=== PATIENT | female | born 1950 | race Caucasian/White ===

== ENCOUNTER 2018-05-29 17:55 | Emergency (ER) | payer MEDICARE, OTHER, SELFPAY ==
[2018-05-29 17:56] VITALS: BP 196/116; PULSE 74; RESP 19; TEMP 36.9; O2SAT 97; BMI 34.2
--- NOTE | 2018-05-29 18:30 | ED.VISSUMM ---
- ER Visit Summary Date of Service: 05/29/18 Chief Complaint: [] Fall left shoulder injury today History of Present Illness: The patient is a 68 F [] she was basically being pulled on what sounds like some type of tube through the eyes like a sliding process when she inadvertently fell off of this device struck her left shoulder against a hard ice presents with shoulder pain she also struck the left side of her head but no LOC no change in vision no numbness weakness or paresthesias indicates her chief complaint is directly over the left shoulder no other complaints otherwise Physical Examination: [] 190/80 As her arm brace with pillows to support the shoulder she cannot move at the shoulder because of pain General, no distress resting comfortably HEENT is generally unremarkable The neck is supple no adenopathy Cardiovascular, regular rate and rhythm Lungs, clear bilateral Abdomen, soft nontender Extremities, no clubbing cyanosis or edema, the left shoulder there is pain directly over the shoulder there is no arm pain elbow pain forearm wrist or hand pain hand pain has good assistant technician, her back is unremarkable she has a mild contusion to the left parietal area her HEENT TM exam unremarkable neurologically unremarkable Neurologic, awake alert answering questions appropriately moving all 4 extremities IH is 0 awake and alert no signs of serious life-threatening head injury Test Results: [] Emergency Department Course and Treatment: [] X-rays obtained of the shoulder we discussed CT of the head they agree this is can be deferred as the chief complaint is the shoulder and she is having no neurologic issues X-ray shows distal clavicle fracture, with some displacement,, see that report discussed the above with the patient she is fitted with a sling ice elevation [place] for pain if [id number] nonsteroidals ineffective she is referred to primary care and also Dr. Reinoso orthopedics for further management return for change in symptoms she remains awake and alert no neurologic abnormalities or findings Treatment Plan: [] Disposition: [] Home stable Impression: [] Fall left clavicle fracture This note was generated with [employer] dictation software. It may contain incorrect words, spelling, and punctuation that were not noted in review of the chart prior to signing ED Disposition - Plan for ED Patient: Chief Complaint: Upper Extremity Injury Instructions: ED Fx Clavicle, ED Fx Shoulder Prescriptions: Hydrocodone Bitart/Apap 5-325 [[place] 5MG-325MG] 1 tab PO Q6H PRN PRN 3 Days #10 tab PRN Reason: Pain Referrals: Stu Reinoso MD [STAFF PHYSICIAN] - Hunter Reed MD [Primary Care Provider] -
[2018-05-29] MEDS: Ondansetron ODT 4 MG Tablet PO (18:38)
[2018-05-29] MEDS: morphine 8 MG/ML Syringe SC (18:39)
--- NOTE | 2018-05-29 18:45 | RAD_ITS ---
STUDY: X-RAY - LEFT SHOULDER REASON FOR EXAM: Female, 68 years old. Left clavicle pain after snow tubing injury TECHNIQUE: 3 view(s) of the shoulder. COMPARISON: None. FINDINGS: Normal glenohumeral articulation. Normal acromioclavicular joint. Normal acromion. Normal humeral head and visualized proximal humerus. Normal variant bone island of the proximal humerus noted. The soft tissue structures are unremarkable. There is a transverse fracture of the mid to distal left clavicle with approximately one shaft's width displacement. No significant angulation. RAD/Shoulder min 2 Views IMPRESSION: Moderately displaced left clavicle fracture. Electronically Signed: Neo Brunson MD at 19:03 EST , Service support ,
--- NOTE | 2018-05-29 18:56 | ED.DEP ---
ED Disposition - Plan for ED Patient: Chief Complaint: Upper Extremity Injury Instructions: ED Fx Shoulder, ED Fx Clavicle Prescriptions: Hydrocodone Bitart/Apap 5-325 [[place] 5MG-325MG] 1 tab PO Q6H PRN PRN 3 Days #10 tab PRN Reason: Pain Referrals: Hunter Reed MD [Primary Care Provider] - Stu Reinoso MD [STAFF PHYSICIAN] -
[2018-05-29 19:32] VITALS: PULSE 65; RESP 18; O2SAT 97
== END 2018-05-29 19:32 | disposition home or self-care (01) ==
LOC: ED 19:16
PROVIDERS: Emergency Provider Emergency Medicine; Family Provider Family Medicine; PCP Family Medicine
DX: S42.002A Fracture of unspecified part of left clavicle, initial encounter for closed fracture (principal); W00.0XXA Fall on same level due to ice and snow, initial encounter; Y93.23 Activity, snow (alpine) (downhill) skiing, snowboarding, sledding, tobogganing and snow tubing; Y92.89 Other specified places as the place of occurrence of the external cause; Y99.8 Other external cause status
CPT/HCPCS: 73030; 96372; 99283

== ENCOUNTER → 2018-06-08 11:03 | Outpatient (CLI) | payer MEDICARE, OTHER, SELFPAY ==
[2018-05-29 17:56] VITALS: BMI 34.2
--- NOTE | 2018-06-08 11:20 | EKG12_ITS ---
Test Reason : PRE OP Blood Pressure : / mmHG Vent. Rate : 072 BPM Atrial Rate : 072 BPM P-R Int : 166 ms QRS Dur : 082 ms QT Int : 406 ms P-R-T Axes : 005 039 048 degrees QTc Int : 444 ms Normal sinus rhythm Normal ECG Reconfirmed by KACY DE LA ROSA, OLGA ([id number]), editor producer PEDRO BHATIA ([id number]) on 06/09/2018 1:25:37 PM Referred By: Jordy Cain Confirmed By:OLGA WOODRUFF MD
[2018-06-08 11:31] LABS: Hematocrit 37.7 % (37-47); Hemoglobin 11.9 g/dl (12.0-15.0); Mean Corp Hgb Conc 31.6 g/gl (32-36); Mean Corpuscular Hgb 30.5 pg (27.0-32.0); Mean Corpuscular Volume 96.7 fL (81-99); Mean Platelet Vol. 9.2 fl (6.2-12.0); Platelet Count 215 K/mm3 (150-450); RBC Distribution Width CV 12.8 % (11.6-14.6); RBC Distribution Width SD 44.5 fl (35.1-43.9); White Blood Count 11.4 K/mm3 (4.4-11.0)
[2018-06-08 11:32] LABS: Scan Indicated on CBC? Y/N NO
[2018-06-08 11:57] LABS: Anion Gap 9 (5-15); BUN 22 mg/dL (7-18); BUN/Creat Ratio 29.3 RATIO (10-20); Calcium,Total 9.5 mg/dL (8.5-10.1); Chloride 103 mmol/L (98-107); Creatinine, Serum 0.75 mg/dL (0.55-1.02); EST Glomerular Filtration Rate 82 mL/min (>60); Est Glom Filt Rate - Afr Amer 99 mL/min (>60); Glucose 103 mg/dL (74-106); Potassium 4.1 mmol/L (3.5-5.1); Sodium Level 140 mmol/L (136-145)
== END ==
PROVIDERS: Family Provider Family Medicine; PCP Family Medicine; Referring Provider Physician Assistant; Visit Provider Physician Assistant
DX: Z01.818 Encounter for other preprocedural examination (principal); Z01.810 Encounter for preprocedural cardiovascular examination
CPT/HCPCS: 36415; 80048; 85027; 93005

== ENCOUNTER → 2018-06-15 09:41 | Outpatient (CLI) | payer MEDICARE, OTHER, SELFPAY ==
[2018-05-29 17:56] VITALS: BMI 34.2
--- NOTE | 2018-06-15 09:44 | CT_ITS ---
STUDY: CT CHEST WITHOUT CONTRAST REASON FOR EXAM: Female, 68 years old. Left clavicular fracture and repair on May 29. The patient now presents with right-sided posterior rib pain. RADIATION DOSAGE (If Supplied By Facility): CTDIvol = ( 25.14 ) mGy, DLP = ( 929.87 ) mGycm TECHNIQUE: Transaxial imaging was performed without the administration of intravenous contrast material. Multiplanar coronal and sagittal images were reformatted. Individualized dose optimization techniques were used for this CT. COMPARISON: None. FINDINGS: The patient is status post ORIF of the left clavicular fracture. There is good alignment. There now is evidence of a infiltration in the right lower lobe. There is an 8 mm noncalcified nodule in the anterior aspect of the right lower lobe abutting the right major fissure. Mild degree of increased markings at the left lung base. Sternal cerclage wires and vascular clips are present from a prior sternotomy and coronary artery bypass graft procedure (CABG). There are multiple small lymph nodes within the mediastinum, which are normal in size and morphology most compatible with reactive lymph hyperplasia. Small calcified right hilar lymph nodes. Normal unenhanced pulmonary arteries. There is atherosclerotic calcification of the aortic arch aortic. There are multi-level degenerative changes of the thoracic spine. There is no demonstrated abnormality of the visualized upper abdomen. CT/Chest without Contrast IMPRESSION: Right lower lobe infiltration. 8 mm noncalcified nodule in the anterior aspect of the right lower lobe abutting the right major fissure. Electronically Signed: Steffen Wakefield MD at 12:32 EST , Service support ,
== END ==
PROVIDERS: Family Provider Family Medicine; PCP Family Medicine; Referring Provider Physician Assistant; Visit Provider Physician Assistant
DX: R07.1 Chest pain on breathing (principal)
CPT/HCPCS: 71250

== ENCOUNTER → 2018-06-16 14:37 | Outpatient (CLI) | payer MEDICARE, OTHER, SELFPAY ==
[2018-05-29 17:56] VITALS: BMI 34.2
[2018-06-23 10:50] LABS: HPV Reflexed? NOT INDICATED
== END ==
PROVIDERS: Visit Provider Obstetrics & Gynecology
DX: Z12.4 Encounter for screening for malignant neoplasm of cervix (principal)
CPT/HCPCS: 88175; G0145

== ENCOUNTER → 2018-07-01 13:03 | Outpatient (CLI) | payer MEDICARE, OTHER, SELFPAY ==
--- NOTE | 2018-07-01 13:03 | BD_ITS ---
STUDY: DUAL ENERGY X-RAY ABSORPTIOMETRY / DXA REASON FOR EXAM: Female, 68 years old. The patient is postmenopausal. No loss of height. TECHNIQUE: Bone Mineral Density (BMD) measurements of lumbar spine and bilateral hips were obtained. COMPARISON: Comparison is made with prior study dated October 30, 2010. FINDINGS: Lumbar Spine (L1-L4): g/cm2 (0.942) / T-score (-2.0) / Z-score (-0.4) Findings are suggestive of osteopenia with a moderate fracture risk. Left Femur Total: g/cm2 (0.802) / T-score (-1.6) / Z-score (-0.4) Left Femoral Neck: g/cm2 (0.841) / T-score (-1.4) / Z-score (0.1) Right Femur Total: g/cm2 (0.740) / T-score (-2.1) / Z-score (-0.9) Right Femoral Neck: g/cm2 (0.739) / T-score (-2.2) / Z-score (-0.6) The T-Scores on the most recent prior examination were: Lumbar Spine (L1-L4): There has been worsening of bone density since the previous examination. Left Femur Total: which represents a worsening of 5.9%. Right Femur Total: which represents a worsening of 9.0%. BD/Dexa Bone Density Study IMPRESSION: The patient is considered osteopenic as outlined below according to World Roger Organization (WHO) criteria with a moderate fracture risk. There has been worsening of bone density since the previous examination. Reference Information: The T-score is the number of standard deviations above or below the standard which is normal for young adults at their peak bone mineral density. The World Health Organization (WHO) interprets the T-scores as follows: Above -1 Normal bone density Between -1 and -2.5 Osteopenia Equal to / or below -2.5 Osteoporosis As a practical clinical guideline, osteopenia may be graded as follows: Mild -1 through -1.5 Moderate -1.6 through -2.0 Severe -2.1 through -2.4 The Z-score is the number of standard deviations above or below age-matched controls. A Z-score of less than -1.5 would be considered abnormal. References: 1. NIH Osteoporosis and Related Bone Diseases http://www.osteo.org 2. International Society for Clinical Densitometry http://www.iscd.org 3. National Osteoporosis Foundation http://www.nof.org Electronically Signed: Steffen Wakefield, at 15:49 EST , Service support ,
== END ==
PROVIDERS: Family Provider Family Medicine; PCP Family Medicine; Referring Provider Obstetrics & Gynecology; Visit Provider Obstetrics & Gynecology
DX: Z78.0 Asymptomatic menopausal state (principal)
CPT/HCPCS: 77080

== ENCOUNTER → 2018-07-21 14:41 | Outpatient (CLI) | payer MEDICARE, OTHER, SELFPAY ==
--- NOTE | 2018-07-21 14:45 | VDUE_ITS ---
Reason For Study: LUE swelling Left Proximal Left jugular vein is spontaneous, widely patent, phasic, with no intraluminal echogenicity noted. Left subclavian vein is spontaneous, widely patent, phasic, with no intraluminal echogenicity noted. Left Arm Left axillary vein is spontaneous, patent, phasic, competent, compressible and demonstrates augmentation. Left brachial vein is compressible. Cephalic v is dilated and non-compressible from above antecubital space to axillary level. Left basilic vein is compressible. Dr. Reed called with prelim. Left Lower Arm Left radial vein is compressible. Left ulnar vein is compressible. Interpretation Summary Deep veins of the left upper extremity are patent and compressible segmentally. There is no evidence of deep vein thrombosis. Acute superficial thrombophlebitis is noted in the left cephalic vein, from the left antecubital space to the axillary level. The left basilic vein is patent and compressible. Ordering Physician: Hunter Reed Referring Physician: Hunter Reed Performed By: Patricia Roberts RVT ?
== END ==
PROVIDERS: Family Provider Family Medicine; PCP Family Medicine; Referring Provider Family Medicine; Visit Provider Family Medicine
DX: R60.0 Localized edema (principal)
CPT/HCPCS: 93971

== ENCOUNTER 2021-02-19 11:06 | Emergency (ER) | payer MEDICARE, OTHER, SELFPAY ==
[2021-02-19 11:09] VITALS: BP 169/79; PULSE 68; RESP 18; TEMP 36.3; O2SAT 99; BMI 33.5
[2021-02-19 12:03] VITALS: BP 129/63; PULSE 60; RESP 14; O2SAT 98
--- NOTE | 2021-02-19 12:18 | EKG12_ITS ---
Test Reason : Blood Pressure : / mmHG Vent. Rate : 059 BPM Atrial Rate : 059 BPM P-R Int : 184 ms QRS Dur : 082 ms QT Int : 436 ms P-R-T Axes : 056 004 034 degrees QTc Int : 431 ms Sinus bradycardia Otherwise normal ECG Confirmed by KACY DE LA ROSA, OLGA ([id number]), editorial cartoonist QIANA BERGER ([id number]) on 02/20/2021 9:27:10 AM Referred By: ROSLYN Confirmed By:OLGA WOODRUFF MD
[2021-02-19] MEDS: Aspirin 81 MG TAB.CHEW 324 MG PO (12:32)
[2021-02-19 12:38] LABS: Absolute Lymphocyte Count 1.54 X10^3/uL (0.83-4.51); Absolute Neutrophil Count 4.2 X10^3/uL (2.0-7.7); Basophil# 0.03 X10^3/uL; Basophil% 0.5 % (0-1); Eosinophil# 0.04 X10^3/uL; Eosinophils% 0.6 % (0-5); Hematocrit 38.2 % (37-47); Hemoglobin 12.4 g/dL (12.0-15.0); Lymphocyte # 1.54 X10^3/ul (0.83-4.51); Lymphocyte % 24.6 % (19-41); Mean Corp Hgb Conc 32.5 g/dL (32-36); Mean Corpuscular Volume 95.5 fL (81-99); Mean Platelet Vol. 9.9 fl (6.2-12.0); Monocyte# 0.39 X10^3/uL; Monocyte% 6.2 % (0-10); NRBC Flagged by Analyzer 0 % (0-5); Neutrophil # 4.23 X10^3/uL (2.7-7.7); Neutrophil % 67.8 % (47-70); Platelet Count 263 K/mm3 (150-450); RBC Distribution Width CV 12.5 % (11.6-14.6); RBC Distribution Width SD 43.6 fl (35.1-43.9); White Blood Count 6.3 K/mm3 (4.4-11.0)
--- NOTE | 2021-02-19 12:50 | RAD_ITS ---
STUDY: X-RAY CHEST REASON FOR EXAM: Female, 70 years old. Chest pain TECHNIQUE: Single AP portable view of the chest. COMPARISON: None. FINDINGS: EKG electrodes are seen. There is elevation of the right hemidiaphragm. The lungs are clear. There is no demonstrated pleural abnormality. Normal size heart. Normal mediastinum and aster. Normal visualized pulmonary arteries. Normal visualized aortic arch and descending thoracic aorta. There are diffuse degenerative changes of the visualized thoracic spine. Prior ORIF of the left clavicle. Stable 8.9 mm rounded calcific density in the surgical neck of the proximal left humerus. This may represent a bone island. There is no demonstrated abnormality of the visualized soft tissue structures of the upper abdomen. RAD/Chest 1 View (Portable) IMPRESSION: No acute abnormality is seen. Electronically Signed: Steffen Wakefield MD at 13:02 EDT , Service support ,
[2021-02-19 12:57] LABS: Anion Gap 5 (5-15); BUN 18 mg/dL (7-18); BUN/Creat Ratio 23.4 RATIO (10-20); Chloride 106 mmol/L (98-107); Creatinine, Serum 0.77 mg/dL (0.55-1.02); EST Glomerular Filtration Rate 79 mL/min (>60); Est Glom Filt Rate - Afr Amer 96 mL/min (>60); Glucose 93 mg/dL (74-106); Potassium 4.2 mmol/L (3.5-5.1); Sodium Level 141 mmol/L (136-145); Troponin-I HS 5 pg/mL (3.0-54.0)
--- NOTE | 2021-02-19 14:05 | EX.ED.DYSGE1 ---
HPI History of Present Illness Chief Complaint: Hypertension Narrative Narrative: Patient presents with hypertension, she had an episode earlier today where she just did not feel well, she took her blood pressure and it was elevated, she also had what she thought was discomfort in her chest that lasted a few minutes and now improved. She is nonsymptomatic. She has no headache or vision changes she has no pleuritic component no back pain or tearing sensation. [facility] Medical History History of osteopenia Hyperlipidemia Nonrheumatic mitral valve prolapse Syncope Home Medications atorvastatin 10 mg tablet 10 mg PO DAILY 01/20/18 [History Last Taken Unknown] calcium carbonate 500 mg calcium (1,250 mg) tablet 500 mg PO DAILY tab 01/20/18 [History Last Taken Unknown] multivitamin 1 tab PO DAILY 01/20/18 [History Last Taken Unknown] naproxen 500 mg tablet 500 mg PO BID PRN 01/20/18 [History Last Taken Unknown] omega-3 fatty acids 1,000 mg capsule 1 tab PO DAILY 01/20/18 [History Last Taken Unknown] Allergy/AdvReac Type Severity Reaction Status Date / Time No Known Allergies Allergy Verified 02/19/21 11:12 Family History Father Cancer leukemia Surgical History History of tubal ligation History of tubal ligation Social History Smoking Status: Never smoker alcohol intake: current substance use type: does not use ROS ROS ED ROS Narrative Past medical history: Reviewed, includes hypercholesterolemia, she does not take blood pressure medications. Medications: Reviewed Social history: Noncontributory Review of systems: All systems negative except as indicated General: No fever Eyes: No visual changes ENT: No upper airway congestion, normal voice Neck: No neck pain Cardiovascular: Chest discomfort resolved Respiratory: No shortness of breath or cough Gastrointestinal: No abdominal pain, nausea vomiting or diarrhea Genitourinary: No dysuria Musculoskeletal: Denies myalgias no difficulty with ambulation Skin: No rash Neurological: No memory loss, confusion or any focal weakness Psych: No recent behavioral changes Hematologic: No easy bleeding or easy bruising EXAM Physical Exam Narrative Exam Narrative: Physical exam General: Well nourished, Well developed, No Acute Distress Head: Normocephalic, Atraumatic Eyes: Conjunctiva not pale ENT: Moist mucous membranes Neck: Supple, Nontender, No lymphadenopathy Cardiovascular: Regular rate, Regular rhythm Respiratory: No distress, CTA bilaterally Abdomen: Soft, Nontender, Nondistended Back: Nontender, Normal Inspection. Negative for: CVA tenderness Extremities: Nontender, No edema Skin: Normal color, No rash Neurological: Alert, Normal Strength, Normal Sensation Psychological: Normal affect Const Vital Signs: 02/19/21 11:09 02/19/21 12:03 02/19/21 12:05 Temperature 97.3 F L Temperature Source Temporal Pulse Rate 68 60 Respiratory Rate 18 14 Respiratory Effort Normal Non-Labored Respiratory Pattern Normal Blood Pressure 169/79 H 129/63 H Blood Pressure Mean 109 85 Pulse Ox 99 98 Oxygen Delivery Method Room Air Room Air 02/19/21 12:33 Temperature Temperature Source Pulse Rate Respiratory Rate Respiratory Effort Respiratory Pattern Blood Pressure Blood Pressure Mean Pulse Ox Oxygen Delivery Method Room Air MDM MDM MDM Narrative Medical decision making narrative: Patient appears well. Her heart score is a 3. She has a normal high-sensitivity troponin. I believe she can safely be discharged. Hypertension is now resolved I told her to take her blood pressure 3 times a day for the next week and taken to her PCP. Lab Data Labs: Laboratory Results - last 24 hr 02/19/21 02/19/21 11:33 11:33 WBC 6.3 RBC 4.00 L Hgb 12.4 Hct 38.2 MCV 95.5 MCH 31.0 MCHC 32.5 RDW Std Deviation 43.6 RDW Coeff of Natalie 12.5 Plt Count 263 MPV 9.9 Immature Gran % (Auto) 0.300 Neut % (Auto) 67.8 Lymph % (Auto) 24.6 [place] % (Auto) 6.2 Eos % (Auto) 0.6 Baso % (Auto) 0.5 Absolute Neuts (auto) 4.2 Absolute Lymphs (auto) 1.54 Nucleated RBC % 0 Sodium 141 Potassium 4.2 Chloride 106 Carbon Dioxide 30.0 Anion Gap 5 BUN 18 Creatinine 0.77 Estim Creat Clear Calc 46.50 Est GFR (MDRD) Af Amer 96 Est GFR (MDRD) Non-Af 79 BUN/Creatinine Ratio 23.4 H Glucose 93 Calcium 10.0 Troponin I High Sens 5 Radiography Diagnostic Testing: Clinical Impression(s) from Imaging Studies Chest X-Ray 02/19/21 12:50 IMPRESSION: No acute abnormality is seen. Electronically Signed: Steffen Wakefield MD at 13:02 EDT , Service support , Discharge Plan Triage Chief Complaint: Hypertension ED Provider: Arnol Salazar Dx/Rx/DC Orders Clinical Impression: Chest pain, Hypertension Instructions: ED Chest Pain, Uncertain Cause Prescriptions: No Action naproxen [Naprosyn] 500 mg tablet 500 mg PO BID PRN (Reason: Pain) RF: 0 calcium carbonate 500 mg calcium (1,250 mg) tablet 500 mg PO DAILY RF: 0 omega-3 fatty acids 1,000 mg capsule 1 tab PO DAILY RF: 0 multivitamin tablet 1 tab PO DAILY RF: 0 atorvastatin 10 mg tablet 10 mg PO DAILY RF: 0 Primary Care Provider: Hunter Reed Referrals: Hunter Reed MD [Primary Care Provider] - 2 Days Disposition Disposition: Home, Self Care
[2021-02-19 14:29] VITALS: BP 139/75; PULSE 65; RESP 18; O2SAT 99
== END 2021-02-19 14:31 | disposition home or self-care (01) ==
PROVIDERS: Emergency Provider Emergency Medicine; PCP Family Medicine
DX: R07.9 Chest pain, unspecified (principal); I10 Essential (primary) hypertension; E78.00 Pure hypercholesterolemia, unspecified; Z79.899 Other long term (current) drug therapy
CPT/HCPCS: 71045; 80048; 84484; 85025; 93005; 99285; A4216

== ENCOUNTER → 2024-06-22 | Outpatient (CLI) | payer MEDICARE, OTHER, SELFPAY ==
--- NOTE | 2024-06-22 13:41 | VDLE_ITS ---
Reason For Study Reason For Study: Left leg pain Procedure LEFT This is a venous duplex using B-mode, color flow and CFV is compressible, spontaneous, phasic, competent, spectral Doppler. and demonstrates normal augmentation. Exam performed in department. FV is compressible, spontaneous, phasic, competent Patient was scanned in reverse Trendelenburg position and demonstrates normal augmentation. during reflux assessment. POP V is compressible, spontaneous, phasic, competent and demonstrates normal augmentation. T/P Trunk is compressible. PTV is compressible. LT PerV is compressible. SFJ is INCOMPETENT and measures 0.80 cm. GSV proximal thigh measures 0.24 x 0.27 cm. GSV at knee measures 0.42 x 0.42 cm. GSV below knee is INCOMPETENT for greater than 0.5 seconds. GSV is absent from prox thigh to knee. Symptomatic varicose vein comes from GSV prox thigh and is INCOMPETENT for greater than 0.5 seconds. ASV at junction is INCOMPETENT for greater than 0.5 seconds and measures 0.34 x 0.32 cm. INCOMPETENT [employer] technical lead senior developer noted 13 cm above medial malleolus. SSV mid calf is INCOMPETENT for greater than 0.5 seconds and measures 0.26 x 0.29 cm. VL/Venous Duplex US, Unilateral Interpretation Summary Deep veins of the right lower extremity are patent and compressible segmentally . There is no evidence of right lower extremity deep vein thrombosis. The right great saphenous vein appears patent a nd compressible segmentally. Positive for reflux in the left saphenofemoral junction, great saphenous vein b elow the knee, accessory saphenous vein from junction and small saphenous vein. Ordering Physician: Charlotte Gomez Referring Physician: Hunter Reed Performed By: Juliette Bernal RVT
== END | disposition home or self-care (01) ==
LOC: CVS 13:40
PROVIDERS: PCP Family Medicine; Referring Provider Physician Assistant; Visit Provider Physician Assistant
DX: M79.605 Pain in left leg (principal); I83.899 Varicose veins of unspecified lower extremity with other complications
CPT/HCPCS: 93971

== ENCOUNTER 2024-10-06 07:56 | Day surgery (SDC) | payer MEDICARE, OTHER, SELFPAY ==
[2024-09-28 08:15] LABS: Hematocrit 36.5 % (37-47); Hemoglobin 11.8 g/dL (12.0-15.0); Mean Corp Hgb Conc 32.3 g/dL (32-36); Mean Corpuscular Hgb 31.3 pg (27.0-32.0); Mean Corpuscular Volume 96.8 fL (81-99); Mean Platelet Vol. 9.4 fl (6.2-12.0); Platelet Count 279 K/mm3 (150-450); RBC Distribution Width CV 12.9 % (11.6-14.6); RBC Distribution Width SD 45.5 fl (35.1-43.9); Red Blood Count 3.77 M/mm3 (4.2-5.4); White Blood Count 6.2 K/mm3 (4.4-11.0)
[2024-09-28 09:10] LABS: Anion Gap 9 (5-15); BUN 22 mg/dL (4-19); BUN/Creat Ratio 27.8 RATIO (10-20); Calcium,Total 9.7 mg/dL (7.6-11.0); Carbon Dioxide 24.5 mmol/L (21.0-32.0); Chloride 108 mmol/L (98-108); Creatinine, Serum 0.77 mg/dL (0.70-1.20); EST Glomerular Filtration Rate 81 (>60); Glucose 106 mg/dL (70-99); Potassium 4.3 mmol/L (3.3-5.1); Sodium Level 141 mmol/L (133-145)
[2024-10-06] VITALS (8 sets, daily range): BP systolic 101–134; BP diastolic 42–56; PULSE 56–71; RESP 16; TEMP 36.4–36.6; O2SAT 96–100; BMI 31.8
[2024-10-06] MEDS: Lactated Ringers 1,000 ML 15 ML IV (08:27)
--- NOTE | 2024-10-06 09:06 | PRE.ANES_ITS ---
ASA Classification* ASA Classification ASA Classification: 2 Assessment & Plan Anesthesia* Anesthesia Assessment Anesthesia Assessment: Discussed sedation and/or anesthesia options, risks, benefits, and alternatives with patient/parents/legal guardian/POA. Questions invited. The patient/parents/legal guardian/POA seems to understand and agrees to proceed with anesthesia plan. Reviewed the physical assessment, medical history, allergy history and patient home medications list prior to surgery/procedure/anesthetic and documented any changes. Performed airway and anesthesia risk assessments. Anesthesia Type Anesthesia Type: MAC History Source History Obtained from:: Patient and Chart Anesthesia Focused Assessment* Temperature: 97.7 F Blood Pressure: 134/56 Respiratory Rate: 16 Pulse Ox: 98 Oxygen Delivery Method: Room Air Airway Assessment Mouth opens: >3 cm Mallampati Score: I Teeth Condition: Caps/Crowns Neck Range of motion (ROM): Full ROM Comment: All are tight Focused Labs Anesthesia Preop lab: CBC WBC 6.2 K/mm3 (4.4-11.0) 09/28/24 07:47 09/28/24 RBC 3.77 M/mm3 (4.2-5.4) L 09/28/24 07:47 09/28/24 Hgb 11.8 g/dL (12.0-15.0) L 09/28/24 07:47 5 Hct 36.5 % (37-47) L 09/28/24 07:47 09/28/24 Plt Count 279 K/mm3 (150-450) 09/28/24 07:47 09/28/24 CHEMISTRY Potassium 4.3 mmol/L (3.3-5.1) 09/28/24 07:47 09/28/24 Sodium 141 mmol/L (133-145) 09/28/24 07:47 09/28/24 BUN 22 mg/dL (4-19) H 09/28/24 07:47 09/28/24 Creatinine 0.77 mg/dL (0.70-1.20) 09/28/24 07:47 09/28/24 Glucose 106 mg/dL (70-99) H 09/28/24 07:47 09/28/24 COAG Pre-Assessment Diagnosis/Proposed Procedure Planned Operative Procedure(s): (L) Left Saphenofemeral Junction Ligation Anesthesia History Anesthesia History - emergency technician: Anesthesia History - emergency technician Hx Hospitalization No 09/13/24 16:11 Any Problems With Anesthesia No 09/13/24 16:11 Cholinesterase deficiency No 09/13/24 16:11 You/Your Family Experience No 09/13/24 16:11 fever (hyperthermia) with Relationship Recent Exposure to Contagious No 10/06/24 08:16 Disease Does patient have nerve No 09/13/24 16:11 stimulator Patient instructed to have device shut off --Does patient have Pacemaker No 10/06/24 08:16 or ICD? When Was Last Pacemaker Check QUESTION #4 FULL TEXT: You/Your Family Experience fever (hyperthermia) with Anesthesia Last Oral Intake Last Oral intake: Last Oral Intake NPO since 20:00 10/06/24 08:16 Meds taken in AM with sips of Yes 10/06/24 08:16 water? Meds patient instructed to take am of surgery PONV PONV - emergency technician: PONV - emergency technician Female Yes 09/13/24 16:11 HX of Motion Sickness No 09/13/24 16:11 HX of N/V After Surgery No 09/13/24 16:11 Non-Smoker Yes 09/13/24 16:11 Duration of Surgery greater No 09/13/24 16:11 than 60 minutes Number of Risk Factors 2 09/13/24 16:11 PONV Score Moderate Risk 09/13/24 16:11 Height & Weight Height & Weight: Anesthesia: Height & Weight Height 5 ft 4 in 10/06/24 08:16 Weight: 84.1 kg 10/06/24 08:16 Body Mass Index (BMI) 31.8 10/06/24 08:16 Respiratory Assessment Respiratory Assessment - emergency technician: Respiratory Tract Infection Hx - emergency technician Hx Respiratory Tract Infection No 09/13/24 16:11 STOP Sleep Apnea STOP Sleep Apnea - emergency technician: STOP Sleep Apnea - emergency technician Hx Hypertension No 09/13/24 16:11 Hx Sleep Apnea No 09/13/24 16:11 CPAP BIPAP Do you snore loudly (louder No 09/13/24 16:11 than talking or can be heard Do you often feel tired/ No 09/13/24 16:11 fatigued/ sleepy during daytime? Has anyone observed you stop No 09/13/24 16:11 breathing during sleep? STOP Results Negative 09/13/24 16:11 QUESTION #5 FULL TEXT : Do you snore loudly (louder than talking or can be heard through closed doors)? Tobacco Use History Tobacco Use History - emergency technician: Tobacco Use History - emergency technician Tobacco Use Smoking Status Never smoker 09/13/24 16:11 Hx Tobacco Use No 09/13/24 16:11 Years Smoking Packs Smoked per Day Smoking Cessation Date was within the last 15 years Hx Smoking Cessation Date Hx Smoking Cessation Counseling Hematologic Medial History Hematologic Hx - emergency technician: Hematologic Medical Hx - hire car driver Hx of Blood Transfusion No 09/13/24 16:11 Hx of Transfusion in last 3 No 09/13/24 16:11 Months Date of Last Transfusion (if within last 3 months) Ever experience any problems No 09/13/24 16:11 with transfusion(s)? Specify any problems Hx of Preganancy in last 3 No 09/13/24 16:11 Months Nurse Filling Out Transfusion VLEHGLEN DALE 09/13/24 16:11 & Questions: Date: 09/13/24 09/13/24 16:11 Time: 16:17 09/13/24 16:11 Patient unable to answer at this time (ie. confused, unrespo /Reproduction History /Reproductive History - emergency technician: /Reproductive Hx- emergency technician Hx Now No 09/13/24 16:11 Gestational Age (in weeks): EDC: Hx Hx Para Hx Section SAB No 09/13/24 16:11 Active Medications Active Medications: Current Medications Generic Name Dose Route Start Last Admin Trade Name Pedroq PRN Reason Stop Dose Admin Lactated Ringer's 1,000 mls @ 15 mls/hr 10/06/24 08:15 10/06/24 08:27 IV 15 mls/hr .Q48H DEE Administration PFSH Medical History History of broken collarbone Arthritis Low iron High cholesterol Non-smoker History of echocardiogram History of stress test Syncope History of osteopenia Hyperlipidemia Nonrheumatic mitral valve prolapse Home Medications ?Medication ?Instructions ?Recorded ?Last Taken ?Type calcium carbonate 500 mg PO DAILY 01/20/18 Unk nown History multivitamin 1 tablet PO DAILY 01/20/18 U nknown History omega-3 fatty acids 1,000 mg 1 tablet PO DAILY 8 Unknown History capsule atorvastatin 10 mg tablet 20 mg PO DAILY 06/17/24 Unkn own History Allergy/AdvReac Type Severity Reaction Status Date / Time No Known Allergies Allergy Verified 09/13/24 16:10 Family History Father Cancer leukemia Other CVA (cerebral vascular accident) Heart disease Myocardial infarction Surgical History History of tubal ligation History of tubal ligation Social History Smoking Status: Never smoker alcohol intake: current substance use type: does not use Review of Systems (Anesthesia) ROS Narrative System reviewed and no additional complaints, except as documented.
--- NOTE | 2024-10-06 09:22 | PCM.HP.STD ---
HPI - General HPI Narrative BHANU FARRAR, is a 74 F who presents with symptomatic LLE varicose veins. 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 Since the last OV, she has been wearing measured compression stockings, elevating her legs at rest, and avoiding prolonged periods of idle sitting/standing. Unfortunately, she continues to have significant discomfort in this varicosity which tracks from left medial thigh down and across her knee to her proximal anterior calf [facility] Medical History History of broken collarbone Arthritis Low iron High cholesterol Non-smoker History of echocardiogram History of stress test Syncope History of osteopenia Hyperlipidemia Nonrheumatic mitral valve prolapse Home Medications ?Medication ?Instructions ?Recorded ?Last Taken ?Type calcium carbonate 500 mg PO DAILY 01/20/18 Unknown History multivitamin 1 tablet PO DAILY 01/20/18 Unknown History omega-3 fatty acids 1,000 mg 1 tablet PO DAILY 01/20/18 Unknown History capsule atorvastatin 10 mg tablet 20 mg PO DAILY 06/17/24 Unknown History Allergy/AdvReac Type Severity Reaction Status Date / Time No Known Allergies Allergy Verified 09/13/24 16:10 Family History Father Cancer leukemia Other CVA (cerebral vascular accident) Heart disease Myocardial infarction Surgical History History of tubal ligation History of tubal ligation Social History Smoking Status: Never smoker alcohol intake: current substance use type: does not use ROS Constitutional Constitutional: Denies chills, fever(s), frequent falls, lethargy or weakness Eyes Eyes: Denies blind spots, change in vision or loss of vision ENT HEENT: Denies bleeding gums, hoarseness or sore throat Cardiovascular Cardiovascular: Denies abdominal pain, bluish discoloration of hand/feet, chest pain with activity, claudication, cold extremities, cyanosis, dyspnea on exertion, erythema on extremities, irregular heart rhythm, leg edema, leg ulcers, numbness in extremities or weakness in extremities Respiratory/Chest Respiratory/Chest: Denies cough, excessive phlegm production, shortness of breath at rest, shortness of breath with exertion or wheezing Gastrointestinal Gastrointestinal: Denies anorexia, change in stool character, constipation, diarrhea, melena or rectal bleeding Genitourinary Genitourinary: Denies dysuria or hematuria Musculoskeletal Musculoskeletal: Denies abnormal gait Integumentary Integumentary: Reports other Details: ; Denies erythema, non-healing lesions or wounds Neurologic Neurologic: Denies abnormal speech, focal weakness, headache(s), loss of vision, numbness, paresthesias or sensory deficit Hematologic/Lymphatic Hematologic/Lymphatic: Denies easy bleeding, easy bruising or lymphadenopathy Vital Signs Vital Signs Vital Signs: 10/06/24 08:16 10/06/24 08:16 10/06/24 09:09 Temperature 97.7 F L 97.7 F L Temperature Source Temporal Respiratory Rate 16 16 Respiratory Pattern Normal Blood Pressure 134/56 H 134/56 H Blood Pressure Mean 82 Blood Pressure Source Monitor Blood Pressure Position Sitting Blood Pressure Location Left Arm Pulse Ox 98 98 Oxygen Delivery Method Room Air Room Air Weight Weight: 185 lb 6.54 oz Body Mass Index (BMI) 31.8 Physical Exam Const alert, oriented x3, no apparent distress and healthy appearing General Appearance: cooperative; Negative for combative or lethargic Orientation / Consciousness: awake Exam Limitations: no limitations HEENT Head and Scalp: normocephalic and atraumatic Eyes EOMs intact bilaterally General Eye: normal appearance of both eyes Neck full ROM General: trachea midline Resp normal respiratory effort and no use of accessory muscles Effort and Inspection: Negative for labored, stridor or audible wheezes Cardio regular rate and regular rhythm Back/Spine Cervical Spine: cervical ROM normal Extremity full ROM, normal capillary refill and no clubbing, cyanosis or edema Skin no rashes or lesions noted and no wounds Neuro oriented x3, CN's II-XII intact bilaterally, no focal motor deficits and no sensory deficits noted Psych thought process normal, cooperative, affect normal, speech normal and activity/motor behavior normal Results Lab / Micro Data 09/28/24 07:47 09/28/24 07:47 Assessment & Plan Assessment/Plan (1) Symptomatic varicose veins: QUALIFIERS: Laterality: left Qualified Code(s): I83.892 - Varicose veins of left lower extremity with other complications PLAN: -painful -ligate SFJ to depressurize symptomatic vein
[2024-10-06] MEDS: Bupivacaine 0.25% 30 ML Vial (10:28)
[2024-10-06] MEDS: Lidocaine 1% (20 ml mdv) 20 ML Vial (10:28)
--- NOTE | 2024-10-06 10:28 | EX.PCM.DISCH ---
Discharge Instructions Diet Discharge Diet: No restrictions Activity May shower in (days): 2 Lifting Restrictions: do not lift > 20 lbs for 2 weeks Additional Activity Instructions:: do not submerge incision for 2 weeks Dressing / Incision Call your doctor if your incision/area has: Sudden Increased Bleeding, Increased Pain/ Swelling, Increased Redness and Foul Smelling Discharge Remove Dressing in: 2 days Cleanse incision/area with: Soap & Water Follow Up Care Test Results: Test results from this visit will be discussed in further detail at your follow-up appointment, if applicable. Discharge Plan Admission Attending Provider: Dick Nguyen Primary Care Provider: Hunter Reed Instructions Print Language: [place] Irish Discharge Orders/Prescriptions Prescriptions: New oxycodone 5 mg tablet 5 mg PO Q8H PRN (Reason: pain) 1 Days Qty: 3 0RF Continued calcium carbonate 500 mg calcium (1,250 mg) tablet 500 mg PO DAILY omega-3 fatty acids 1,000 mg capsule 1 tablet PO DAILY multivitamin tablet 1 tablet PO DAILY atorvastatin 10 mg tablet 20 mg PO DAILY Referrals / Follow Up: Hunter Reed MD [Primary Care Provider] - Disposition Disposition (needs filled in before D/C Order can be placed): Home, Self Care
--- NOTE | 2024-10-06 10:49 | PCM.POST.ANE ---
Anesthesia: Postop Eval I Current Vital Signs Temperature: 98 F Pulse Rate: 71 Blood Pressure: 101/52 Respiratory Rate: 16 Pulse Ox: 99 Assessment Airway patent: Yes Spontaneous unlabored respirations: Yes nausea: No Vomiting: No Anesthesia Complication: No Fluid Hydration Crystalloid volume administer (ml): 700 Total IV fluid infused: 700 Progress Note Anesthesia document: Postop Eval 1 completed: Yes
--- NOTE | 2024-10-06 16:47 | PCM.OPRPT ---
Operative Report (Standard) Operative Information Date of Procedure: 10/06/24 Pre-Operative Diagnosis: Varicose veins with pain of the left lower extremity, prior great saphenous ablation Post-Operative Diagnosis: Same Surgery/Procedure Performed: Ligation of the left saphenofemoral junction and incompetent accessory saphenous vein geomorphology teacher: Yes Nitrogen Operator: Rosario Jade Tasks completed by certified surgical tech/first assistant: Opening, Closing, Opening & closing, Hemostasis: Tie and Retracting Type of Anesthesia: Local MAC, Local and MAC RN Documented Start/Stop Times: Operation Date: 10/06/24 09:45 Case Time Into Pre-Op 10/06/24 08:00 Out of Pre-Op 10/06/24 09:40 Anesthesia Start 10/06/24 09:43 Into Room 10/06/24 09:43 Procedure End 10/06/24 10:40 Anesthesia End 10/06/24 10:45 Out of Room 10/06/24 10:45 Into Recovery 10/06/24 10:47 Into Phase II Recovery 10/06/24 11:06 Out of Recovery 10/06/24 11:06 Out of Phase II 10/06/24 12:47 Procedure Start Time: 10:05 Procedure Stop Time: 10:40 Select all DRAINS/GRAFTS/IMPLANTS that apply: None Estimated Blood Loss: 4 Specimen collected: No Description of surgery: HPI: Patient is a 74-year-old female with chronic venous insufficiency and varicose veins of the left lower extremity with pain. She previously has undergone thermal ablation of the left great saphenous vein which initially had resolved her symptoms. She has developed a painful varicosity along the anterior aspect of her thigh that has been refractory to compression garments. Venous reflux studies revealed incompetent saphenofemoral junction and accessory saphenous vein along the anterior aspect of the thigh correlating to her site of symptomatology. Given her prior great saphenous ablation and the distribution of her valvular incompetence she is taken now for saphenofemoral junction ligation. Description of procedure: Upon obtaining informed consent and verification correct patient procedure site the patient was taken to the operating where she was positioned prepped and draped in usual sterile fashion. Time was performed moderate sedation administered Versed and fentanyl. Ultrasound was used to evaluate to the saphenofemoral junction and the accessory saphenous vein. Skin overlying the saphenofemoral junction was anesthetized 1% lidocaine and an oblique incision made with 10 blade. Bovie was then used to dissect down through subcutaneous tissue and self-retaining retractors put in position. Further dissection was carried down to the accessory saphenous vein and once this was identified sharp dissection used to dissect free proximally to the saphenofemoral junction. All side branches were ligated with silk ties and divided and the saphenofemoral junction clamped with an atraumatic clamp. The accessory saphenous vein was then ligated distally and divided inferior to the clamp. The stump of the saphenofemoral junction was then oversewn with 5-0 Prolene in 2 layers after which the clamps were removed and satisfactory hemostasis was noted. The incision was then inspected for hemostasis and then closed with 3-0 Vicryl followed by 4-0 Monocryl and Dermabond for the skin. At the conclusion the case the patient was taken to the recovery room with anticipated discharge to home. Surgical Findings: See above Complications Complications: No
--- NOTE | 2024-10-06 19:01 | POSTOPAN2_ITS ---
Anesthesia Postop Eval I Sum Postop Eval Completion status Anesthesia document: Postop Eval 1 completed: Yes Anesthesia Postop Eval I Summary Anesthesia Postop Eval I Summary: Anesthesia Postop Eval I: Assessment Summary Airway patent Yes 10/06/24 10:49 FLIPPING MACHINE OPERATOR.[email or web address] Spontaneous unlabored Yes 10/06/24 10:49 FLIPPING MACHINE OPERATOR.[email or web address] respirations Mental status nausea No 10/06/24 10:49 FLIPPING MACHINE OPERATOR.TNES Vomiting No 10/06/24 10:49 FLIPPING MACHINE OPERATOR.[email or web address] Anesthesia Postop Eval I: Fluid Summary Crystalloid volume administer 700 10/06/24 10:49 FLIPPING MACHINE OPERATOR.TNES (ml) Colloids volume administered ( ml) Blood Product volume administered (ml) Total IV fluid infused 700 10/06/24 10:49 FLIPPING MACHINE OPERATOR.TNES Anesthesia Postop Eval I: Summary Notes Anesthesia Complication No 10/06/24 10:49 FLIPPING MACHINE OPERATOR.[email or web address] Anesthesia Complication Comment: Post-operative progress note Anesthesia: Postop Eval II Evaluation Mental status: Awake and Calm Pain Level: 2 nausea: No Vomiting: No Complications Anesthesia Complication: No
--- NOTE | 2024-10-06 19:01 | PCM.POSTANE2 ---
Anesthesia Postop Eval I Sum Postop Eval Completion status Anesthesia document: Postop Eval 1 completed: Yes Anesthesia Postop Eval I Summary Anesthesia Postop Eval I Summary: Anesthesia Postop Eval I: Assessment Summary Airway patent Yes 10/06/24 10:49 CUSTOMER ADVOCACY MANAGER.TNES Spontaneous unlabored Yes 10/06/24 10:49 CUSTOMER ADVOCACY MANAGER.TNES respirations Mental status nausea No 10/06/24 10:49 CUSTOMER ADVOCACY MANAGER.TNES Vomiting No 10/06/24 10:49 CUSTOMER ADVOCACY MANAGER.TNES Anesthesia Postop Eval I: Fluid Summary Crystalloid volume administer 700 10/06/24 10:49 CUSTOMER ADVOCACY MANAGER.TNES (ml) Colloids volume administered ( ml) Blood Product volume administered (ml) Total IV fluid infused 700 10/06/24 10:49 CUSTOMER ADVOCACY MANAGER.TNES Anesthesia Postop Eval I: Summary Notes Anesthesia Complication No 10/06/24 10:49 CUSTOMER ADVOCACY MANAGER.TNES Anesthesia Complication Comment: Post-operative progress note Anesthesia: Postop Eval II Evaluation Mental status: Awake and Calm Pain Level: 2 nausea: No Vomiting: No Complications Anesthesia Complication: No
== END 2024-10-06 12:47 | disposition home or self-care (01) ==
LOC: SDC 07:57 → AC 08:05
PROVIDERS: PCP Family Medicine; Referring Provider Surgery Trauma Surgery; Visit Provider Surgery Trauma Surgery
PROC: (CPT 37607; principal; 2024-10-06 09:30)
DX: I83.812 Varicose veins of left lower extremity with pain (principal); I87.2 Venous insufficiency (chronic) (peripheral); E78.00 Pure hypercholesterolemia, unspecified; Z98.51 Tubal ligation status
CPT/HCPCS: 37700; 01520; 36415; 80048; 85027; A4648